=== PATIENT | female | born 1960 | race Caucasian/White ===

== ENCOUNTER 2017-04-02 13:20 | Emergency (ER) | payer MEDICAID, SELFPAY ==
[2017-04-02 14:01] VITALS: BP 156/106; PULSE 95; RESP 16; TEMP 36.6; O2SAT 94; BMI 29.2
--- NOTE | 2017-04-02 14:09 | XR_ITS ---
XR CHEST 2V HISTORY: ITS.REASON: COUGH CHEST PRESSURE WITH BREATHING ORDERING PHYSICIAN: Daany Wall PATIENT AGE: 57 years COMPARISON: 04/20/2012 FINDINGS: The cardiomediastinal silhouette and pulmonary vascularity are within normal limits. There are chronic interstitial changes noted throughout both lungs with some increased density in both lower lobes consistent with by basilar atelectasis and/or infiltrate. Surgical clips are present in the left upper quadrant. There is a metallic density which may represent a nahomy pin overlying the right upper chest frontal view but not identified on the lateral view. No acute bony abnormalities. IMPRESSION: Chronic interstitial changes with bilateral lower lobe atelectasis and/or infiltrate
--- NOTE | 2017-04-02 14:36 | HMH.EDUTC ---
[facility] [place] Clinical Impression: Chest congestion, Cough Disposition: Home, Self-Care Condition on Discharge: Good Additional Instructions: Take medication as prescribed Follow up with family doctor If you began having any trouble breathing go straight to the ER REturn if needed *Sleep elevated *humidifier or vaporizer Lots of rest Prescriptions: Benzonatate [Tessalon Perle 100mg Cap] 100 mg PO TID #15 cap Promethazine/Dextromethorphan [Promethazine-Dm Syrup] 5 ml PO DIRECTED #200 syrup Referrals: Nilton Aldridge [Primary Care Provider] - Time of Disposition: 15:06 (Patient given written prescription for cefdinir 300mg twice daily for 10 days) Medical Decision Making Vital Signs: 04/02/17 14:01 Temperature 97.9 F Temperature Source Oral Pulse Rate [Right Brachial] 95 H Respiratory Rate 16 Blood Pressure [Right Arm] 156/106 Blood Pressure Mean [Right Arm] 122 Blood Pressure Source [Right Arm] Automatic Cuff Blood Pressure Position [Right Arm] Sitting 02 Sat by Pulse Oximetry 94 L Oxygen Delivery Method Room Air Orders (Tests/Meds): ORDERS Category Date Time Status Chest XR 2 view (NOT portable) [XR chest 2V] Stat Exams 04/02/17 14:09 Taken - Radiology Data #1 Image(s): Chest Preliminary Findings: No Infiltrates Seen (Discussed with Dr Brady) - Hunter Inquiry Pt receiving controlled substance: No Hunter was queried for this patient: No [facility] [place] HPI - General Stated complaint: congestion lungs hurt when coughs Mode of Arrival: Ambulatory Source of Information: Patient Limitations: No Limitations Description of Symptoms (Recalled from Triage Doc. by RN): COUGH, PRESSURE ON CHEST WITH BREATHING, DARK GREEN MUCOUS FOR 4 DAYS. HEENT Symptoms (Recalled from RN notes): Yes (DARK GREEN MUCOUS) Resp Symptoms (Recalled from RN notes): Yes (COUGH, PRESSURE ON CHEST WITH BREATHING) Skin Symptoms (Recalled from RN notes): No MS Symptoms (Recalled from RN notes): No Functional Status (Recalled from RN notes): NA - History of Present Illness Provider Complaint: Patient state that she has been having cough and congestion State that she has been continously getting worse over the last few days State that she wanted to come in and get checked before she ended up with pneumonia Severity scale (1-10): 4 Consistency: constant Relieving factors: none Exacerbating factors: none Associated symptoms: cough - Related Data Previous Rx's Medication Instructions Recorded Benzonatate [Tessalon Perle 100mg 100 mg PO TID #15 cap 04/02/17 Cap] Promethazine/Dextromethorphan 5 ml PO DIRECTED #200 syrup 04/02/17 [Promethazine-Dm Syrup] Allergies Allergy/AdvReac Type Severity Reaction Status Date / Time No Known Allergies Allergy Unverified 03/19/17 14:55 - Worker's Comp Is this a Worker's Comp case?: No Is this an [facility] Worker's Comp?: No Is this a [facility] Worker's Comp?: No [facility] History Medical History: Reports:: Diabetes Mellitus Type 2 Denies:: Cancer, Diabetes Mellitus Type 1, MRSA Amputation: No Fractures: No - *Social History Smoking Status: Current every day smoker Tobacco Type: cigarettes Alcohol Intake: never - Psychiatric History Expresses thoughts of harming self/others: None Suicide Plan Description: No Plan - Respiratory Reports chest congestion, Reports cough Physical Exam - General General appearance: alert, in no apparent distress - ENT ENT exam: Present: normal exam, normal oropharynx, mucous membranes moist, TM's normal bilaterally, normal external ear exam - Chest Chest inspection: Present: normal inspection, symmetric chest wall rise. Absent: tenderness - Respiratory Respiratory exam: Present: normal lung sounds bilaterally. Absent: respiratory distress - Cardiovascular Cardiovascular exam: Present: regular rate, normal rhythm. Absent: JVD - Neurological Exam Neurological exam: Present: alert, oriented X3 - Skin Skin e
--- NOTE | 2017-04-02 14:42 | ED_ITS ---
[facility] – [place] Disposition Clinical Impression: Chest congestion, Cough Disposition: Home, Self-Care Condition on Discharge: Good Additional Instructions: Take medication as prescribed Follow up with family doctor If you began having any trouble breathing go straight to the ER REturn if needed *Sleep elevated *humidifier or vaporizer Lots of rest Prescriptions: Benzonatate [Tessalon Perle 100mg Cap] 100 mg PO TID #15 cap Promethazine/Dextromethorphan [Promethazine-Dm Syrup] 5 ml PO DIRECTED #200 syrup Referrals: Nilton Aldridge [Primary Care Provider] - Time of Disposition: 15:06 (Patient given written prescription for cefdinir 300mg twice daily for 10 days) Medical Decision Making Vital Signs: 04/02/17 14:01 Temperature 97.9 F Temperature Source Oral Pulse Rate [Right Brachial] 95 H Respiratory Rate 16 Blood Pressure [Right Arm] 156/106 Blood Pressure Mean [Right Arm] 122 Blood Pressure Source [Right Arm] Automatic Cuff Blood Pressure Position [Right Arm] Sitting 02 Sat by Pulse Oximetry 94 L Oxygen Delivery Method Room Air Orders (Tests/Meds): ORDERS Category Date Time Status Chest XR 2 view (NOT portable) [XR chest 2V] Stat Exams 04/02/17 14:09 Taken - Radiology Data #1 Image(s): Chest Preliminary Findings: No Infiltrates Seen (Discussed with Dr Brady) - Hunter Inquiry Pt receiving controlled substance: No Hunter was queried for this patient: No [facility] [place] HPI - General Stated complaint: congestion lungs hurt when coughs Mode of Arrival: Ambulatory Source of Information: Patient Limitations: No Limitations Description of Symptoms (Recalled from Triage Doc. by RN): COUGH, PRESSURE ON CHEST WITH BREATHING, DARK GREEN MUCOUS FOR 4 DAYS. HEENT Symptoms (Recalled from RN notes): Yes (DARK GREEN MUCOUS) Resp Symptoms (Recalled from RN notes): Yes (COUGH, PRESSURE ON CHEST WITH BREATHING) Skin Symptoms (Recalled from RN notes): No MS Symptoms (Recalled from RN notes): No Functional Status (Recalled from RN notes): NA - History of Present Illness Provider Complaint: Patient state that she has been having cough and congestion State that she has been continously getting worse over the last few days State that she wanted to come in and get checked before she ended up with pneumonia Severity scale (1-10): 4 Consistency: constant Relieving factors: none Exacerbating factors: none Associated symptoms: cough - Related Data Previous Rx's Medication Instructions Recorded Benzonatate [Tessalon Perle 100mg 100 mg PO TID #15 cap 04/02/17 Cap] Promethazine/Dextromethorphan 5 ml PO DIRECTED #200 syrup 04/02/17 [Promethazine-Dm Syrup] Allergies Allergy/AdvReac Type Severity Reaction Status Date / Time No Known Allergies Allergy Unverified 03/19/17 14:55 - Worker's Comp Is this a Worker's Comp case?: No Is this an [facility] Worker's Comp?: No Is this a [facility] Worker's Comp?: No [facility] History Medical History: Reports:: Diabetes Mellitus Type 2 Denies:: Cancer, Diabetes Mellitus Type 1, MRSA Amputation: No Fractures: No - *Social History Smoking Status: Current every day smoker Tobacco Type: cigarettes Alcohol Intake: never - Psychiatric History Expresses thoughts of harming self/others: None Suicide Plan Description:
== END 2017-04-02 15:21 | disposition home or self-care (01) ==
PROVIDERS: Emergency Provider Nurse Practitioner; Family Provider Internal Medicine; PCP Internal Medicine
DX: R09.89 Other specified symptoms and signs involving the circulatory and respiratory systems (principal); R05 Cough; F17.210 Nicotine dependence, cigarettes, uncomplicated
CPT/HCPCS: 71046; 96372; 99201

== ENCOUNTER → 2019-08-14 10:20 | Outpatient (CLI) | payer MEDICAID, SELFPAY ==
--- NOTE | 2019-08-14 10:24 | US_ITS ---
APPROVED REPORT Exam Type: Lower Extremity Segmental Pressures Contract Administrator: Jessica Marroquin RVT Indications Claudication: Right Rest Pain: Right Edema Current Smoker pvd Risk Factors CAD Diabetes Current Smoker Pressures/Indices Right Indices Left Indices Brachial 189.00 mmHg Brachial 193.00 mmHg Low Thigh 126.00 mmHg 0.65 Low Thigh 122.00 mmHg 0.63 Calf 56.00 mmHg 0.29 Calf 111.00 mmHg 0.58 Ankle(PT) 61.00 mmHg 0.32 Ankle(PT) 123.00 mmHg 0.64 Ankle(DP) 64.00 mmHg 0.33 Ankle(DP) 124.00 mmHg 0.64 Digit 42.00 mmHg 0.22 Digit 96.00 mmHg 0.50 Findings RT QIAN:0.32 LT QIAN:0.64 RT TBI:0.22 LT TBI:0.50 DECREASED PULSES BILATERAL DAMPENED WAVEFORMS BILATERAL Conclusion RT QIAN:0.32 LT QIAN:0.64 RT TBI:0.22 LT TBI:0.50 DECREASED PULSES BILATERAL DAMPENED WAVEFORMS 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
== END ==
PROVIDERS: PCP Internal Medicine; Visit Provider Internal Medicine
DX: I73.9 Peripheral vascular disease, unspecified (principal); L03.031 Cellulitis of right toe; E11.9 Type 2 diabetes mellitus without complications; F17.210 Nicotine dependence, cigarettes, uncomplicated
CPT/HCPCS: 93923

== ENCOUNTER 2019-09-14 05:22 | Emergency (ER) | payer MEDICAID, SELFPAY ==
[2019-09-14 05:30] VITALS: BP 205/116; PULSE 66; RESP 18; TEMP 36.8; O2SAT 100; BMI 25.3
--- NOTE | 2019-09-14 05:49 | HMH.EDSKAF ---
ED Disposition Clinical Impression: Nail avulsion Disposition: Home, Self-Care Condition on Discharge: Good Instructions: DI for Nail Avulsion Injury Additional Instructions: see pcp for follow up Referrals: Nilton Aldridge [Primary Care Provider] - - Critical Care Critical Care Time: No Attestation: On 09/14/19, the high probability of a clinically significant, sudden or life threatening deterioration of the following system(s) required my full and direct attention, intervention and personal management. The time I documented below is in addition to time spent performing reported procedures but includes the following listed in this critical care notation. Medical Decision Making - Medical Records Medical records reviewed: Yes: I reviewed the patient's medical records. - Hunter Inquiry Pt receiving controlled substance: No Vital Signs: 09/14/19 05:30 Temperature 98.3 F Temperature Source Oral Pulse Rate [Right] 66 Respiratory Rate 18 Blood Pressure [Right Arm] 205/116 H Blood Pressure Mean [Right Arm] 145 Blood Pressure Source [Right Arm] Automatic Cuff Blood Pressure Position [Right Arm] Sitting 02 Sat by Pulse Oximetry 100 Oxygen Delivery Method Room Air Skin/Abscess/FB HPI - General Chief complaint: Extremity Problem,Nontraumatic Stated complaint: Rt Big Toenail is detached Time Seen by Provider: 09/14/19 05:49 Mode of Arrival: Ambulatory Source of Information: Patient, Medical Record Limitations: No Limitations Description of Symptoms (Recalled from ER Triage Doc. by RN): 2nd toe of the right foot toenail detached - History of Present Illness HPI narrative: pt with recent vascular surg and has avusled rt second toe nail complaint: other (toe nail ) Onset (ago): hour(s) Tetanus up to date: unsure Location: R foot Severity: mild Associated symptoms: denies other symptoms Treatments prior to arrival: none - Related Data Home Medications Medication Instructions Recorded Confirmed levothyroxine 200 mcg tablet PO 03/18/19 03/18/19 Allergies Allergy/AdvReac Type Severity Reaction Status Date / Time No Known Allergies Allergy Verified 03/18/19 17:31 [facility] History - Hepatitis A Screen Drug use history?: No High risk sexual behaviors?: No History of sexually transmitted infection?: No Currently employed?: No Childcare worker?: No Do you have indoor plumbing?: Yes Do you have electricity?: Yes Attestation statement:: This patient has been screened for Hepatitis A risk factors. I have reviewed the patient's past medical history: Yes Medical History: Reports:: Transient Ischemic Attacks (TIA) Denies:: Cancer, Diabetes Mellitus Type 1, Diabetes Mellitus Type 2, MRSA Other Surgeries: Yes: Cardiac Catheterization Amputation: No Fractures: Yes (LEG) - Social History Smoking Status: Current every day smoker Tobacco Type: cigarettes # Packs/Day (cigarettes): 1 Alcohol Intake: never Substance Use Type: denies use Occupational Status: employed Housing: house Household Members: none Family Hx:: Non-contributory ROS Obtained: Yes All systems reviewed & no additional complaints - Constitutional Constitutional: Denies fever(s) - Eyes Eyes: Denies change in vision - ENT Ears, Nose, Mouth, and Throat: Denies sore throat - Cardiovascular Cardiovascular: Denies chest pain - Respiratory Respiratory: No cough - Gastrointestinal Gastrointestingal: Denies: abdominal pain - Genitourinary Female Genitourinary: Denies hematuria - Musculoskeletal Musculoskeletal: Denies joint pain - Integumentary/Breasts Skin/Breast: Denies rash - Neurologic Neurologic: Denies focal weakness, Denies seizure-like activity Physical Exam - General General appearance: alert - Head Head exam: normocephalic - Eye Eye exam: Present: PERRL, EOMI - ENT ENT exam: Present: mucous membranes moist - Neck Neck exam: Present: trachea midline - Respiratory
[2019-09-14 05:55] VITALS: BP 202/104; PULSE 64; RESP 16; TEMP 36.8; O2SAT 97
== END 2019-09-14 05:57 | disposition home or self-care (01) ==
PROVIDERS: Emergency Provider Emergency Medicine; PCP Internal Medicine
DX: S91.204A Unspecified open wound of right lesser toe(s) with damage to nail, initial encounter (principal); G45.8 Other transient cerebral ischemic attacks and related syndromes; F17.210 Nicotine dependence, cigarettes, uncomplicated
CPT/HCPCS: 99281

== ENCOUNTER 2020-01-05 18:50 | Emergency (ER) | payer MEDICAID, SELFPAY ==
[2020-01-05 19:15] VITALS: BP 141/101; PULSE 70; RESP 21; O2SAT 97; BMI 26.0
[2020-01-05 19:33] VITALS: BP 126/86; PULSE 107; RESP 18; TEMP 37.3; O2SAT 95; BMI 26.0
--- NOTE | 2020-01-05 19:45 | HMH.EDGENADL ---
ED Disposition Condition on Discharge: Serious - Critical Care Critical Care Time: No <Irving Rosas - Last Filed: 01/05/20 19:45> <Alex Youngblood - Last Filed: 01/05/20 22:23> Clinical Impression: Right foot pain, Ischemic pain of foot at rest Disposition: Xfer Short-Term Hosp Referrals: Nilton Aldridge [Primary Care Provider] - Attestation: On 01/05/20, the high probability of a clinically significant, sudden or life threatening deterioration of the following system(s) required my full and direct attention, intervention and personal management. The time I documented below is in addition to time spent performing reported procedures but includes the following listed in this critical care notation. Medical Decision Making - Medical Records Medical records reviewed: Yes: I reviewed the patient's medical records. - Hunter Inquiry Pt receiving controlled substance: Yes Hunter was queried for this patient: No Reason not queried -: Emergent pt cond-no time Risks and benefits of using a controlled substance: were discussed with pt by me - Reevaluation(s) Time: 19:49 <Irving Rosas - Last Filed: 01/05/20 19:45> - Lab Data Lab results reviewed: Yes: I reviewed the patient's lab results. Result diagrams: 01/05/20 19:45 01/05/20 19:45 - Radiology Data #1 Image(s): Foot/Toes Image Reviewed: Yes I reviewed the patient's radiology image Preliminary Findings: No Fracture Seen - Physician Consults Physician Consulted: vascular surg Reason -: Pt condition Additional Consult: lima Reason -: Transfer to another facilty <Alex Youngblood - Last Filed: 01/05/20 22:23> Vital Signs: 01/05/20 19:15 01/05/20 19:33 Temperature 99.1 F Temperature Source Oral Pulse Rate [Left Brachial] 70 107 H Respiratory Rate 21 18 Blood Pressure [Left Arm] 141/101 H 126/86 Blood Pressure Mean [Left Arm] 114 99 Blood Pressure Source [Left Arm] Automatic Cuff Automatic Cuff Blood Pressure Position [Left Arm] Sitting Supine 02 Sat by Pulse Oximetry 97 95 Oxygen Delivery Method Room Air Room Air - Lab Data Lab Results 01/05/20 19:45: WBC 13.6 H, RBC 5.31, Hgb 15.3, Hct 47.8 H, MCV 90.0, MCH 28.8, MCHC 32.0, RDW 17.5, Plt Count 318, MPV 7.3 L, Neut % (Auto) 76.4, Lymph % (Auto) 17.5, Harlan % (Auto) 4.2, Eos % (Auto) 1.2, Baso % (Auto) 0.7, Neut # (Auto) 10.4 H, Lymph # (Auto) 2.4, Harlan # (Auto) 0.6, Eos # (Auto) 0.2, Baso # (Auto) 0.1 01/05/20 19:45: PT 11.4, INR 1.03, APTT 25.3 01/05/20 19:45: Sodium 140, Potassium 3.3 L, Chloride 100, Carbon Dioxide 30, Anion Gap 13.3, BUN 22 H, Creatinine 0.60, Estimated Creat Clear 105, Estimated GFR 102, Est GFR ( Amer) 123, Glucose 152 H, Calcium 9.7, Total Bilirubin 0.4, AST 23, ALT 14, Alkaline Phosphatase 153 H, Total Protein 7.7, Albumin 4.0, Globulin 3.7 H, Albumin/Globulin Ratio 1.1 Orders (Tests/Meds): ED MEDICATIONS Generic Name Dose Route Start Last Admin Trade Name Freq PRN Reason Stop Dose Admin Heparin Sodium/Dextrose 500 mls @ 20 mls/hr 01/05/20 20:45 01/05/20 20:44 Heparin 25,000 Units In D5w 500ml Premix IV 02/04/20 20:44 20 mls/hr .Q25H HAMIDA Administration 1,000 UNITS/HR Discontinued Medications Generic Name Dose Route Start Last Admin Trade Name Freq PRN Reason Stop Dose Admin Heparin Sodium (Porcine) 5,000 unit 01/05/20 20:37 01/05/20 20:44 Heparin Sodium 5,000 Unit/Ml Vial IV 01/05/20 20:38 5,000 unit ONCE ONE Administration Morphine Sulfate 4 mg 01/05/20 19:44 01/05/20 19:48 Morphine 4mg/Ml Syringe IV 01/05/20 19:45 4 mg ONCE ONE Administration Ondansetron HCl 4 mg 01/05/20 19:44 01/05/20 19:48 Ondansetron 4mg/2ml Vial IV 01/05/20 19:45 4 mg ONCE ONE Administration ORDERS Category Date Time Status XR foot RT min 3V Stat Exams 01/05/20 19:51 Taken - Reevaluation(s) Reevaluation #1: Patient was signed out to oncoming physician pending reevaluation and f
--- NOTE | 2020-01-05 19:51 | XR_ITS ---
PROCEDURE: XR FOOT RT MIN 3V CLINICAL INDICATION: pain Swelling and redness COMPARISON: No exams were available for comparison FINDINGS: There is a comminuted fracture involving the proximal aspect of the proximal phalanx of the 5th digit which involves the articular surface of the proximal phalanx. There is a lytic defect involving the distal and medial aspect of the distal phalanx of the great toe. This is fairly well-circumscribed. There is some soft tissue swelling of the great toe. No soft tissue gas is evident. The defect measures approximately 8 mm. IMPRESSION: 1. Lytic defect involves the distal and medial aspect of the distal phalanx of the great toe suspicious for osteomyelitis in the appropriate clinical setting. Neoplasm would be included in the differential diagnosis.. 2. Comminuted nondisplaced fracture involving the proximal articular surface of the proximal phalanx of the 5th toe. Dictated by: Skip Harrison MD 01/06/2020 05:14 Skip Harrison MD in [place] 01/06/2020 05:14
[2020-01-05 19:52] LABS: Basophils # 0.1 K/mm3 (0-0.2); Basophils % 0.7 % (0.1-2.0); Eosinophils # 0.2 K/mm3 (0.0-0.4); Eosinophils % 1.2 % (0.1-12.0); Hematocrit 47.8 % (37.0-47.0); Hemoglobin 15.3 g/dL (12.2-16.2); Lymphocytes # 2.4 K/mm3 (0.7-4.5); Lymphocytes % 17.5 % (10-50); Mean Corpuscular Hemoglobin 28.8 pg (27.0-31.2); Mean Platelet Volume 7.3 fl (7.4-10.4); Monocytes # 0.6 K/mm3 (0.1-1.0); Monocytes % 4.2 % (1.7-9.3); Neutrophils # 10.4 K/mm3 (1.8-7.8); Neutrophils % 76.4 % (37.0-80.0); Platelet Count 318 K/mm3 (142-424); Red Blood Count 5.31 M/mm3 (4.20-5.40); Red Cell Distribution Width 17.5 % (11.5-17.5); White Blood Count 13.6 K/mm3 (4.8-10.8)
[2020-01-05 19:58] LABS: Chloride 100 mmol/L (98-107)
[2020-01-05 19:59] LABS: Potassium 3.3 mmoL/L (3.5-5.1); Sodium 140 mmol/L (136-145)
[2020-01-05 20:01] LABS: Alanine Aminotransferase 14 U/L (12-78); Aspartate Amino Transferase 23 U/L (14-36); Blood Urea Nitrogen 22 mg/dl (7-17); Creatinine Clearance Estimated 105 mL/min (50-200); Estimated Glomerular Filt Rate 102 ml/min (>60); GFR (African American) 123 ML/MIN (>60)
[2020-01-05 20:02] LABS: Albumin/Globulin Ratio 1.1 (1.1-1.8); Alkaline Phosphatase 153 U/L (38-126); Anion Gap 13.3 mEq/L (5-15); Bilirubin,Total 0.4 mg/dl (0.2-1.3); Calcium 9.7 mg/dl (8.4-10.2); Carbon Dioxide 30 mmol/L (22.0-30.0); Globulin 3.7 g/dL (1.3-3.2); Glucose 152 mg/dl (74-100); Total Protein,Serum 7.7 g/dl (6.3-8.2)
[2020-01-05 20:11] LABS: Prothrombin Time 11.4 seconds (9.4-11.8)
[2020-01-05 20:12] LABS: Activated Partial Thrombo Time 25.3 seconds (23.6-34.0); INR 1.03 (0.9-1.1)
[2020-01-05 20:21] VITALS: BP 146/89; PULSE 94; RESP 16; O2SAT 97
--- NOTE | 2020-01-05 20:21 | PC.NURSE ---
and Luis at bedside with dopplar to perform another pulse check
--- NOTE | 2020-01-05 20:25 | PC.NURSE ---
Paged Dr Dutton for Dr Youngblood
--- NOTE | 2020-01-05 20:29 | PC.NURSE ---
Jaziel with Pharmacy called for Heparin orders
--- NOTE | 2020-01-05 20:30 | PC.NURSE ---
gabriela [facility]
[2020-01-05 21:21] VITALS: BP 139/92; PULSE 81; RESP 15; O2SAT 98
[2020-01-05 21:51] VITALS: BP 157/89; PULSE 88; RESP 15; O2SAT 97
--- NOTE | 2020-01-05 22:16 | PC.NURSE ---
speaking with Dr. Barrera at [facility]
--- NOTE | 2020-01-05 22:18 | PC.NURSE ---
pt accepted to [facility]
[2020-01-05 22:21] VITALS: BP 147/98; PULSE 87; RESP 17; O2SAT 98
--- NOTE | 2020-01-05 23:32 | PC.NURSE ---
[facility] called and stated theyre waiting to hear from their house sup. for a bed assignment
--- NOTE | 2020-01-06 00:25 | PC.NURSE ---
Report given to Danay STRAUSS at [facility] called for transport
[2020-01-06 00:42] VITALS: BP 188/94; PULSE 92; RESP 16; TEMP 37.3; O2SAT 97
== END 2020-01-06 00:45 | disposition short-term general hospital (02) ==
LOC: UTC 19:21 → ER 19:21
PROVIDERS: Emergency Provider Emergency Medicine; PCP Internal Medicine
DX: M79.671 Pain in right foot (principal); R09.89 Other specified symptoms and signs involving the circulatory and respiratory systems; G45.8 Other transient cerebral ischemic attacks and related syndromes; F17.210 Nicotine dependence, cigarettes, uncomplicated
CPT/HCPCS: 73630; 80053; 85025; 85610; 85730; 96365; 96366; 96375; 99284; J2405

== ENCOUNTER → 2020-09-19 11:02 | Outpatient (CLI) | payer MEDICAID, SELFPAY ==
--- NOTE | 2020-09-19 11:09 | CA_ITS ---
APPROVED REPORT Right Lower Extremity Venous Study for DVT. Pharmacy Intake Coordinator: Jessica Marroquin RVT Indications Lower Extremity Pain: Right PAIN RT GROIN,PT HAD A BKA 2 MONTHS AGO,PT HAS HAD PRIOR STENT/GRAFT,? PRIOR FEM-POP BYPASS RT Medications PT ON XARELTO Vein Imaging CFV (R): compressive, spontaneous, phasic, augmentation FEM (R): compressive, spontaneous, phasic, augmentation GSV (R): Compressible Findings Study suggests no evidence of DVT or SVT of the right lower extremity. In the area of patient complaint right groin a patent graft is seen, ? probable fem-pop bypass graft. There is a 1.8 X1.4 cm lymph node right groin. Conclusion Study suggests no evidence of DVT or SVT of the right lower extremity. In the area of patient complaint right groin a patent graft is seen, ? probable fem-pop bypass graft. There is a 1.8 X1.4 cm lymph node right groin. Electronically signed by : Skip Harrison MD 09/19/2020 16:32:56
== END ==
PROVIDERS: PCP Internal Medicine; Visit Provider Internal Medicine
DX: M79.604 Pain in right leg (principal); I80.01 Phlebitis and thrombophlebitis of superficial vessels of right lower extremity
CPT/HCPCS: 93971

== ENCOUNTER 2020-12-31 20:41 | Emergency (ER) | payer MEDICAID, SELFPAY ==
[2020-12-31 20:40] VITALS: BP 124/66; PULSE 88; RESP 16; TEMP 36.6; O2SAT 87; BMI 30.9
--- NOTE | 2020-12-31 20:51 | ECG_ITS ---
APPROVED REPORT Exam: Resting ECG HR:56 bpm ECG Measurements Heart Rate 56 AXES IA 192 P 52 QRSd 74 QRS 27 QT 424 T 37 QTc 409 Conclusion Sinus bradycardia with occasional premature ventricular complexes Poor r wave progression, unchanged Abnormal ECG Electronically signed by : Chan Mares MD 01/01/2021 09:17:01
[2020-12-31 20:59] VITALS: BMI 30.9
[2020-12-31 21:25] LABS: ABG Base Excess -7.2 mmol/L (-2.4-2.3); ABG HCO3 18.3 mmhg (22.0-26.0); ABG Oxygen Saturation 91 % (90-100); ABG PCO2 33.1 mmhg (35.0-45.0); ABG PH 7.36 mmol/L (7.35-7.45); ABG PO2 59.4 mmhg (80-100); ABG TCO2 19.3 mmhg (23-27)
[2020-12-31 21:27] LABS: Allen's Test ACCEPTABLE; Oxygen ROOM AIR %; Source Left Radial
[2020-12-31 21:33] LABS: Basophils # 0.2 K/mm3 (0-0.2); Basophils % 1.6 % (0.1-2.0); Eosinophils # 0.1 K/mm3 (0.0-0.4); Eosinophils % 1.4 % (0.1-12.0); Hematocrit 50.5 % (37.0-47.0); Hemoglobin 15.5 g/dL (12.2-16.2); Lymphocytes # 3.3 K/mm3 (0.7-4.5); Mean Corpuscular HGB Conc 30.6 g/dL (31.8-35.4); Mean Corpuscular Hemoglobin 28.2 pg (27.0-31.2); Mean Corpuscular Volume 92.2 fl (81-99); Mean Platelet Volume 8.5 fl (7.4-10.4); Monocytes # 0.4 K/mm3 (0.1-1.0); Monocytes % 3.5 % (1.7-9.3); Neutrophils # 6.4 K/mm3 (1.8-7.8); Neutrophils % 61.5 % (37.0-80.0); Platelet Count 280 K/mm3 (142-424); Red Blood Count 5.47 M/mm3 (4.20-5.40); Red Cell Distribution Width 18.1 % (11.5-17.5); White Blood Count 10.4 K/mm3 (4.8-10.8)
[2020-12-31 21:41] LABS: Chloride 106 mmol/L (98-107)
[2020-12-31 21:42] LABS: Potassium 3.6 mmoL/L (3.5-5.1); Prothrombin Time 11.3 seconds (10.1-12.5); Sodium 140 mmol/L (136-145)
[2020-12-31 21:43] LABS: Lactic Acid 1.2 mmol/L (0.7-2.1)
[2020-12-31 21:44] LABS: Alanine Aminotransferase 16 U/L (12-78); Alkaline Phosphatase 146 U/L (38-126); Anion Gap 10.6 mEq/L (5-15); Aspartate Amino Transferase 23 U/L (14-36); Blood Urea Nitrogen 14 mg/dl (7-17); Carbon Dioxide 27 mmol/L (22.0-30.0); Creatine Kinase 23 U/L (30-135); Creatinine Clearance Estimated 76 mL/min (50-200); Estimated Glomerular Filt Rate 125 ml/min (>60); GFR (African American) 152 ML/MIN (>60)
[2020-12-31 21:45] LABS: Acetaminophen 13 ug/ml (10-30); Albumin Level 3.9 g/dl (3.5-5.0); Albumin/Globulin Ratio 1.1 (1.1-1.8); Calcium 8.8 mg/dl (8.4-10.2); Globulin 3.5 g/dL (1.3-3.2); Glucose 124 mg/dl (74-100); Magnesium 1.5 mg/dl (1.6-2.3); Total Protein,Serum 7.4 g/dl (6.3-8.2)
[2020-12-31 21:50] LABS: Bilirubin,Total 0.1 mg/dl (0.2-1.3); Ethyl Alcohol < 10 mg/dl (0-10); Salicylate < 1.0 mg/dL (2.0-20.0)
[2020-12-31 22:02] LABS: T4 (Thyroxine) 5.8 ug/dl (5.53-11.0)
--- NOTE | 2020-12-31 22:22 | PC.NURSE ---
s/w June @ poison control for pt update. She is going to call back after discussing the case with her salesperson furs.
--- NOTE | 2020-12-31 23:17 | HMH.EDOD ---
ED Disposition Clinical Impression: Misuse of medication, Hypothyroidism (acquired) UTI (urinary tract infection) Qualifiers: Urinary tract infection type: site unspecified Hematuria presence: without hematuria Qualified Code(s): N39.0 - Urinary tract infection, site not specified Disposition: Home, Self-Care Condition on Discharge: Good Instructions: DI for Urinary Tract Infection (UTI) Additional Instructions: call pcp for follow up and urine culture Prescriptions: levoFLOXacin [Levaquin 500mg tab] 500 mg PO DAILY #7 tab Transmission Status: Pending to [id number] Referrals: Provider,Referral, [Primary Care Provider] - - Critical Care Critical Care Time: No Attestation: On 12/31/20, the high probability of a clinically significant, sudden or life threatening deterioration of the following system(s) required my full and direct attention, intervention and personal management. The time I documented below is in addition to time spent performing reported procedures but includes the following listed in this critical care notation. Medical Decision Making - Medical Records Medical records reviewed: Yes: I reviewed the patient's medical records. - Hunter Inquiry Pt receiving controlled substance: No Vital Signs: 12/31/20 20:40 Temperature 97.9 F Temperature Source Oral Pulse Rate [Right] 88 Respiratory Rate 16 Blood Pressure [Right Arm] 124/66 Blood Pressure Mean [Right Arm] 85 Blood Pressure Source [Right Arm] Automatic Cuff 02 Sat by Pulse Oximetry 87 L Oxygen Delivery Method Room Air - Lab Data Lab results reviewed: Yes: I reviewed the patient's lab results. Lab Results 12/31/20 20:46: WBC 10.4, RBC 5.47 H, Hgb 15.5, Hct 50.5 H, MCV 92.2, MCH 28.2, MCHC 30.6 L, RDW 18.1 H, Plt Count 280, MPV 8.5, Neut % (Auto) 61.5, Lymph % (Auto) 32.0, Appling % (Auto) 3.5, Eos % (Auto) 1.4, Baso % (Auto) 1.6, Neut # (Auto) 6.4, Lymph # (Auto) 3.3, Appling # (Auto) 0.4, Eos # (Auto) 0.1, Baso # (Auto) 0.2 12/31/20 20:46: PT 11.3, INR 1.00 12/31/20 20:46: Sodium 140, Potassium 3.6, Chloride 106, Carbon Dioxide 27, Anion Gap 10.6, BUN 14, Creatinine 0.50 L, Estimated Creat Clear 76, Estimated GFR 125, Est GFR ( Amer) 152, Glucose 124 H, Calcium 8.8, Magnesium 1.5 L, Total Bilirubin 0.1 L, AST 23, ALT 16, Alkaline Phosphatase 146 H, Total Creatine Kinase 23 L, Total Protein 7.4, Albumin 3.9, Globulin 3.5 H, Albumin/Globulin Ratio 1.1, TSH 20.50 H, Thyroxine (T4) 5.8, Salicylates < 1.0 L, Acetaminophen 13 12/31/20 20:46: Lactate 1.2 12/31/20 20:46: Plasma/Serum Alcohol < 10 12/31/20 21:02: Specimen Source Left radial, O2 % Room air, ABG pH 7.36, ABG pCO2 33.1 L, ABG pO2 59.4 L, ABG HCO3 18.3 L, ABG Total CO2 19.3 L, ABG O2 Saturation 91, ABG Base Excess -7.2 L, Skip Test Acceptable 12/31/20 23:15: Urine Opiates Screen Negative, Urine Methadone Screen Negative, Ur Barbituates Screen Positive H, Ur Phencyclidine Scrn Negative, Ur Amphetamines Screen Negative, U Benzodiazepines Scrn Negative, Urine Cocaine Screen Negative, U Marijuana (THC) Screen Negative 12/31/20 23:15: Acetaminophen < 10 L 12/31/20 23:16: Urine Color Yellow, Urine Appearance Clear, Urine pH 6.0, Ur Specific Benedict 1.020, Urine Protein Negative, Urine Glucose (UA) Negative, Urine Ketones Negative, Urine Blood Negative, Urine Nitrate Positive, Urine Bilirubin Negative, Urine Urobilinogen 0.2, Ur Leukocyte Esterase Trace, Urine WBC 10-20, Urine Bacteria 2+ Result diagrams: 12/31/20 20:46 12/31/20 20:46 Orders (Tests/Meds): ED MEDICATIONS Generic Name Dose Route Start Last Admin Trade Name Freq PRN Reason Stop Dose Admin Sodium Chloride 1,000 mls @ 999 mls/hr 12/31/20 21:15 12/31/20 21:17 Sod Chlor 0.9% 1000ml Bag IV 12/31/20 22:15 999 mls/hr .Q1H1M HAMIDA Administration Discontinued Medications Generic Name Dose Route Start Last Admin Trade Name Freq PRN Reason Stop Dose Admin Ondansetron HCl 4 mg 12/31/20 21:02 100
[2020-12-31 23:25] LABS: Microscopic, Urine URINE MICROSCOPIC (MICROSCOPIC)
[2020-12-31 23:28] LABS: Appearance,Urine CLEAR (Clear); Bilirubin,Urine Negative (Negative); Blood, Urine Negative (Negative); Color,Urine YELLOW (Yellow); Glucose,Urine (UA) Negative (Negative); Ketones,Urine Negative (Negative); Leukocyte Esterase,Urine TRACE (Negative); Nitrate,Urine POSITIVE (Negative); Protein,Urine Negative (Negative); Urobilinogen,Urine 0.2 EU/dl (0.2)
[2020-12-31 23:31] LABS: Bacteria,Urine 2+ /lpf
[2020-12-31 23:39] LABS: Barbiturates Screen,Urine Positive ng/ml (<200)
[2020-12-31 23:40] LABS: Benzodiazepines Screen,Urine Negative ng/ml (<200)
[2020-12-31 23:41] LABS: Amphetamine/Metha Screen,Urine Negative ng/ml (<1000); Cannabinoid Screen,Urine Negative ng/ml (<50)
[2020-12-31 23:42] LABS: Acetaminophen < 10 ug/ml (10-30); Cocaine Screen,Urine Negative ng/ml (<300); Methadone Screen,Urine Negative ng/ml (<300)
[2020-12-31 23:43] LABS: Opiate Screen,Urine Negative ng/ml (<300)
[2020-12-31 23:44] LABS: Phencyclidine Screen,Urine Negative ng/ml (<25)
[2021-01-01 02:10] VITALS: BP 154/90; PULSE 65; RESP 19; TEMP 36.8; O2SAT 97
== END 2021-01-01 02:15 | disposition home or self-care (01) ==
PROVIDERS: Emergency Provider Emergency Medicine
DX: N39.0 Urinary tract infection, site not specified (principal); F55.8 Abuse of other non-psychoactive substances; E03.9 Hypothyroidism, unspecified; G45.8 Other transient cerebral ischemic attacks and related syndromes; Z79.899 Other long term (current) drug therapy
CPT/HCPCS: 80053; 80305; 80329; 81001; 82550; 82803; 83605; 83735; 84436; 84443; 85025; 85610; 87086; 87088; 87186; 93005; 96365; 99283; J2405

== ENCOUNTER 2021-05-31 20:24 | Emergency (ER) | payer MEDICAID, SELFPAY ==
[2021-05-31 20:26] VITALS: BP 165/96; PULSE 90; RESP 20; TEMP 37.3; O2SAT 97; BMI 28.3
--- NOTE | 2021-05-31 21:10 | XR_ITS ---
PROCEDURE INFORMATION: Exam: XR Chest Exam date and time: 05/31/2021 9:10 PM Age: 61 years old Clinical indication: Cough TECHNIQUE: Imaging protocol: XR of the chest. Views: 1 view. COMPARISON: CR CXR2V XR chest 2V 04/02/2017 2:23 PM FINDINGS: Tubes, catheters and devices: Surgical clips in the epigastric region. Airway: Patent Lungs: Unremarkable. No consolidation. Pleural spaces: Unremarkable. No pleural effusion. No pneumothorax. Heart/Mediastinum: Unremarkable. No cardiomegaly. Bones/joints: No acute skeletal abnormality or aggressive osseous lesion. IMPRESSION: No acute findings.
[2021-05-31 21:25] LABS: Alanine Aminotransferase 22 U/L (12-78); Albumin Level 4.2 g/dl (3.5-5.0); Albumin/Globulin Ratio 1.3 (1.1-1.8); Alkaline Phosphatase 133 U/L (38-126); Amylase 46 U/L (30-110); Anion Gap 13.4 mEq/L (5-15); Aspartate Amino Transferase 31 U/L (14-36); Bilirubin,Total 0.3 mg/dl (0.2-1.3); Blood Urea Nitrogen 27 mg/dl (7-17); Calcium 9.4 mg/dl (8.4-10.2); Carbon Dioxide 25 mmol/L (22.0-30.0); Chloride 107 mmol/L (98-107); Creatinine Clearance Estimated 67 mL/min (50-200); Estimated Glomerular Filt Rate 101 ml/min (>60); GFR (African American) 123 ML/MIN (>60); Globulin 3.3 g/dL (1.3-3.2); Glucose 192 mg/dl (74-100); Potassium 4.4 mmoL/L (3.5-5.1); Sodium 141 mmol/L (136-145); Total Protein,Serum 7.5 g/dl (6.3-8.2)
[2021-05-31 21:28] LABS: Basophils # 0.2 K/mm3 (0-0.2); Basophils % 2.1 % (0.1-2.0); Eosinophils # 0.1 K/mm3 (0.0-0.4); Eosinophils % 0.9 % (0.1-12.0); Hematocrit 53.5 % (37.0-47.0); Hemoglobin 16.4 g/dL (12.2-16.2); Lymphocytes % 29.1 % (10-50); Mean Corpuscular HGB Conc 30.7 g/dL (31.8-35.4); Mean Corpuscular Hemoglobin 32.2 pg (27.0-31.2); Monocytes # 0.5 K/mm3 (0.1-1.0); Monocytes % 5.1 % (1.7-9.3); Neutrophils # 6.5 K/mm3 (1.8-7.8); Neutrophils % 62.7 % (37.0-80.0); Platelet Count 233 K/mm3 (142-424); White Blood Count 10.4 K/mm3 (4.8-10.8)
[2021-05-31 21:31] LABS: C-Reactive Protein 14.7 mg/L (0-4)
[2021-05-31 21:45] LABS: Procalcitonin 0.034 ng/mL (0.0-2.0)
[2021-05-31 21:46] LABS: T4 (Thyroxine) 8.5 ug/dl (5.53-11.0)
[2021-05-31 22:01] LABS: Erythrocyte Sedimentation Rate 11 mm/hr (0-30)
--- NOTE | 2021-05-31 22:51 | [facility].EDEXTP ---
ED Disposition Clinical Impression: Lower extremity edema, Hypothyroidism (acquired) Disposition: Home, Self-Care Condition on Discharge: Good Instructions: DI for Leg Pain Additional Instructions: see pcp for follow up Referrals: Nilton Aldridge [Primary Care Provider] - - Critical Care Critical Care Time: No Attestation: On 05/31/21, the high probability of a clinically significant, sudden or life threatening deterioration of the following system(s) required my full and direct attention, intervention and personal management. The time I documented below is in addition to time spent performing reported procedures but includes the following listed in this critical care notation. Medical Decision Making - Medical Records Medical records reviewed: Yes: I reviewed the patient's medical records. - [place] Inquiry Pt receiving controlled substance: No Vital Signs: 05/31/21 20:26 Temperature 99.1 F Temperature Source Oral Pulse Rate [Apical] 90 Respiratory Rate 20 Blood Pressure [Left Arm] 165/96 H Blood Pressure Mean [Left Arm] 119 Blood Pressure Source [Left Arm] Automatic Cuff Blood Pressure Position [Left Arm] Sitting 02 Sat by Pulse Oximetry 97 Oxygen Delivery Method Room Air - Lab Data Lab results reviewed: Yes: I reviewed the patient's lab results. Lab Results 05/31/21 20:52: WBC 10.4, RBC 5.10, Hgb 16.4 H, Hct 53.5 H, MCV 105.0 H, MCH 32.2 H, MCHC 30.7 L, RDW 14.0, Plt Count 233, MPV 9.0, Neut % (Auto) 62.7, Lymph % (Auto) 29.1, [place] % (Auto) 5.1, Eos % (Auto) 0.9, Baso % (Auto) 2.1 H, Neut # (Auto) 6.5, Lymph # (Auto) 3.0, [place] # (Auto) 0.5, Eos # (Auto) 0.1, Baso # (Auto) 0.2 05/31/21 20:52: Sodium 141, Potassium 4.4, Chloride 107, Carbon Dioxide 25, Anion Gap 13.4, BUN 27 H, Creatinine 0.60, Estimated Creat Clear 67, Estimated GFR 101, Est GFR ( Amer) 123, Glucose 192 H, Calcium 9.4, Total Bilirubin 0.3, AST 31, ALT 22, Alkaline Phosphatase 133 H, C-Reactive Protein 14.7 H, Total Protein 7.5, Albumin 4.2, Globulin 3.3 H, Albumin/Globulin Ratio 1.3, Amylase 46, TSH 14.80 H, Thyroxine (T4) 8.5 05/31/21 20:52: ESR 11 05/31/21 20:52: Procalcitonin 0.034 Result diagrams: 05/31/21 20:52 05/31/21 20:52 Orders (Tests/Meds): ED MEDICATIONS Generic Name Dose Route Start Last Admin Trade Name Freq PRN Reason Stop Dose Admin Sodium Chloride 1,000 mls @ 999 mls/hr 05/31/21 21:15 05/31/21 21:20 Sod Chlor 0.9% 1000ml Bag IV 05/31/21 22:15 999 mls/hr .[id number] HAMIDA Administration Discontinued Medications Generic Name Dose Route Start Last Admin Trade Name Freq PRN Reason Stop Dose Admin Acetaminophen 650 mg 05/31/21 21:44 05/31/21 21:46 Acetaminophen 325mg Tab PO 05/31/21 21:45 650 mg ONCE ONE Administration - Radiology Data #1 Image(s): Chest Image Reviewed: Yes I have reviewed radiologist's interpretation Preliminary Findings: Normal/NAD Medical Decision Narrative: pt has pulse intact and stable exam and will need to see pcp for follow up Extremity Problem HPI - General Chief complaint: Extremity Problem,Nontraumatic Stated complaint: pain in both legs Time Seen by Provider: 05/31/21 21:00 Mode of Arrival: Wheelchair Source of Information: Patient, Medical Record Limitations: No Limitations Description of Symptoms (Recalled from ER Triage Doc. by RN): Pt c/o swelling with redness and pain in her left foot and right lower extremity stump since Saturday05/26/21 but has worsened over the last four days. 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 Does state that she had a stent in her left lower extremity on 03/16/21 by at [facility] and had covid 6 weeks ago and has been having a fever off and on for a couple of weeks with a cough. - History of Present Illness HPI Narrative: pt with concerns about lt lower ext - has hx of vascular s
[2021-05-31 23:04] VITALS: BP 131/71; PULSE 79; RESP 20; TEMP 36.8; O2SAT 93
== END 2021-05-31 23:27 | disposition home or self-care (01) ==
PROVIDERS: Emergency Provider Emergency Medicine; PCP Internal Medicine
DX: R60.0 Localized edema (principal); E03.9 Hypothyroidism, unspecified; Z89.511 Acquired absence of right leg below knee; F17.210 Nicotine dependence, cigarettes, uncomplicated; R05.9 Cough, unspecified; G45.8 Other transient cerebral ischemic attacks and related syndromes; Z79.899 Other long term (current) drug therapy
CPT/HCPCS: 71045; 80053; 82150; 84145; 84436; 84443; 85025; 85651; 86140; 96365; 99283